=== PATIENT | male | born 2000 | race Caucasian/White ===

== ENCOUNTER 2019-06-01 11:33 | Emergency (ER) | payer MEDICAID ==
[~2019-06-01] VITALS: Ht 188 cm; Wt 115.7 kg
[2019-06-01] MEDS ORDERED: DEPRESSION MED (11:43)
[2019-06-01] MEDS ORDERED: METFORMIN HCL500 M3 PO (11:43)
[2019-06-01] MEDS ORDERED: [UNRECOGNIZED DRUG - REMARK] (11:44)
[2019-06-01 12:07] LABS: ABSOLUTE BASOPHILS 0.1 thou/uL (0.0-0.2); ABSOLUTE EOSINOPHILS 0.5 thou/uL (0.0-0.7); ABSOLUTE LYMPHOCYTES 2.8 thou/uL (0.8-5.3); ABSOLUTE MONOCYTES 0.6 thou/uL (0.0-1.2); ABSOLUTE NEUTROPHILS 3.9 thou/uL (1.6-8.1); BASOPHILS 0.8 %; EOSINOPHILS 6.4 %; HEMOGLOBIN 15.6 gm/dL (14.0-18.0); LYMPHOCYTES 35.6 %; MCH 30.4 pg (26.0-34.0); MCHC 34.7 g/dL (28.0-37.0); MCV 87.7 fL (80.0-100.0); MONOCYTES 7.9 %; MPV 9.5 fl. (7.2-11.1); NUCLEATED RBCS 0 /100WBC; PLATELET COUNT* 216 thou/uL (150-400); POLYS 49.3 %; RBC 5.13 mil/uL (4.50-6.00); RDW-CV 12.9 % (10.5-14.5)
[2019-06-01 12:14] LABS: CALCIUM 8.6 mg/dL (8.5-10.1); CREATININE 0.9 mg/dL (0.6-1.3); POTASSIUM 4.1 mmol/L (3.5-5.1)
[2019-06-01 12:21] LABS: ALBUMIN 4.1 g/dL (3.4-5.0); TOTAL BILIRUBIN 0.7 mg/dL (<0.1-1.0); TOTAL PROTEIN 7.2 g/dL (6.4-8.2)
[2019-06-01] MEDS ORDERED: BENTYL 20 MG TA20 M1 PO (13:42)
[2019-06-01] MEDS ORDERED: ONDANSETRON HCL4 M2 PO (13:42)
[2019-06-01 14:08] VITALS: BP 122/55
--- NOTE | 2019-06-01 15:00 | EKG ---
[place] [address] ELECTROCARDIOGRAM REPORT Name: DAGOBERTO LUNA Room: [facility]#: [id number] Admission: 06/01/19 Attend Phys: Discharge: 06/01/19 Date of : 89 Date of Service: 06/01/19 1152 Report #: [id number] THIS REPORT FOR: //name// [facility] ED Test Date: 2019-06-01 Test Time: 11:52:44 Pat Name: DAGOBERTO LUNA Department: Room: Gender: Business Trainer: [facility] : 2000 Requested By: Yamileth Eason Order Number: [id number] : Usman Scott Measurements Intervals [place] Rate: 61 P: 38 HI: 154 QRS: 35 QRSD: 106 T: 29 QT: 418 QTc: 421 Interpretive Statements Sinus rhythm No previous ECG available for comparison Electronically Signed On 06-01-2019 14:58:44 CDT by Usman Scott [email or web address] <ELECTRONICALLY SIGNED> By: Usman Scott MD, [facility] 06/01/19 1458 1152 51 Usman Scott MD, FACC /EPI
== END 2019-06-01 13:59 | disposition home or self-care (01) ==
LOC: M.ERS 11:33
PROVIDERS: Nurse Practitioner Family
DX: K52.9 Noninfective gastroenteritis and colitis, unspecified (principal); J06.9 Acute upper respiratory infection, unspecified; E11.9 Type 2 diabetes mellitus without complications